=== PATIENT | female | born 1950 | race Caucasian/White ===

== ENCOUNTER 2021-11-14 13:44 | Emergency (ER) | payer MEDICARE, OTHER ==
[~2021-11-14] VITALS: Ht 152.4 cm; Wt 87.5 kg
--- NOTE | 2021-11-14 14:11 | ED Fall/Injury ---
General Chief Complaint: Trauma-Non Activation Stated Complaint: FALL; HEAD/RT SHOULDER INJ Source: patient Exam Limitations: no limitations History of Present Illness Date Seen by Provider: Nov 14, 2021 Time Seen by Provider: 13:45 Initial Comments 71-year-old female with past medical history of diabetes, vision issues, previous stroke, hypertension, COPD coming in after she was walking, did not see a ledge, fell over, hit her head on the side of the house, and her right elbow on the ground. She is having a very mild throbbing headache. She is having moderate to severe sharp pain in her right shoulder and right elbow. Pain is better when she is not moving. Did take Tylenol early this morning for regular pain which does not seem to be helping right now. She does not take any blood thinners that she knows of. She does take full dose aspirin daily. She did not pass out, denies chest pain, shortness of breath, abdominal pain, nausea, vomiting, diarrhea, fever, chills, focal weakness or numbness that is new, or any other concerns Allergies and Home Medications Allergies Coded Allergies: Sulfa (Sulfonamide Antibiotics) (Verified Allergy, Unknown, 11/14/21) codeine (Verified Allergy, Unknown, 11/14/21) Patient Home Medication List Home Medication List Reviewed: Yes Review of Systems Review of Systems Constitutional: No chills, No fever Eyes: Blurred Vision (at baseline) Ears, Nose, Mouth, Throat: no symptoms reported Respiratory: no symptoms reported Cardiovascular: no symptoms reported Gastrointestinal: no symptoms reported Genitourinary: no symptoms reported Musculoskeletal: joint pain Skin: no symptoms reported Psychiatric/Neurological: No Symptoms Reported All Other Systems Reviewed Negative Unless Noted: Yes Past Gbnbxmb-Dwpdcv-Izjxpa Hx Patient Social History Tobacco Use?: No Past Medical History Surgeries: Yes Appendectomy, Gallbladder, Tubal Ligation Physical Exam Vital Signs Vital Signs - First Documented Capillary Refill : Height, Weight, BMI Height: '" Weight: lbs. oz. kg; BMI Method: General Appearance: WD/WN, no apparent distress HEENT: PERRL/EOMI, normal ENT inspection, TMs normal, pharynx normal Neck: non-tender, full range of motion, supple, normal inspection Cardiovascular: regular rate, rhythm, no edema, no murmur Respiratory: chest non-tender, lungs clear, normal breath sounds, no respiratory distress, no accessory muscle use Gastrointestinal: normal bowel sounds, non tender, soft; No distended, No guarding, No rebound Back: normal inspection, no CVA tenderness, no vertebral tenderness Extremities: normal inspection, no pedal edema, no calf tenderness, normal capillary refill, other (Swelling and tenderness to the right elbow, tenderness to the distal right shoulder, normal passive and active range of motion of the right elbow, decreased active and passive range of motion of the right shoulder due to pain, normal neurovascular exam of the right upper extremity including normal sensation in the axillary nerve, normal testing of the radial/median/ulnar nerves) 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, no motor/sensory deficits, alert, normal mood/affect, oriented x 3 Skin: normal color, warm/dry Lymphatic: no adenopathy Jessie Coma Score Best Eye Response: (4) Open Spontaneously Best Verbal Response: (5) Oriented Best Motor Response: (6) Obeys Commands Progress/Results/Core Measures Results/Orders My Orders Orders - RUPINDER KAUFFMAN MD Ct Head/Cervical Spine Wo (11/14/21 14:05) Elbow 3 View Right (11/14/21 14:05) Shoulder 3 View Right (11/14/21 14:05) Hydrocodone/Apap 5/325 Tablet (Lortab 5 (11/14/21 14:15) Medications Given in ED Current Medications Medications Dose Ordered Sig/Jessica Route Start Time Stop Time Status Last Admin Dose Admin Acetaminophen/ Hydrocodone Bitart 1 ea ONCE ONCE PO 11/14/21 14:15 11/14/21 14:16 DC 11/14/21 14:19 1 EA Vital Signs/I&O 11/14/21 11/14/21 11/14/21 13:50 13:50 15:00 Temp 35.9 35.9 35.7 Pulse 99 99 92 Resp 20 20 18 B/P (MAP) 134/90 (105) 134/90 (105) 129/87 Pulse Ox 98 98 98 O2 Delivery Room Air Room Air Room Air Progress Progress Note : Progress Note 71-year-old female with above history coming in after a fall. ABCs were intact, vital stable, GCS 15 on presentation. Physical exam with the above-mentioned findings. CT head and cervical spine ordered as well as x-ray of the right shoulder and elbow. She was given hydrocodone for pain. I reviewed the CT scan and I do not see any large intracranial hemorrhage on my interpretation. X-ray of the right shoulder and right elbow also ordered interpreted by me showing no obvious fracture or dislocation. We gave the patient a sling for comfort. I believe she is stable for discharge with outpatient follow-up. She was sent home with strict return precautions. We will have her follow-up with orthopedics here in town. Diagnostic Imaging Diagonstic Imaging: Xray (elbow and shoulder on the right), CT (head and c spine) Comments NAME: CHICO CORDERO [facility] REC#: [id number] PT STATUS: REG ER : 1950 PHYSICIAN: RUPINDER KAUFFMAN MD ADMIT DATE: 11/14/21/ER FS Draft Date of Exam:11/14/21 CT HEAD/CERVICAL SPINE WO PROCEDURE: CT head and CT cervical spine without contrast. TECHNIQUE: Multiple contiguous axial images were obtained through the brain and cervical spine without the use of intravenous contrast. Sagittal and coronal reformations through the cervical spine were then performed. Auto Exposure Controls were utilized during the CT exam to meet ALARA standards for radiation dose reduction. INDICATION: Fall. COMPARISON: No prior studies are available for comparison. CT HEAD: FINDINGS: There is a large area of encephalomalacia in the right occipital lobe consistent with prior infarct. Ventricular size and sulcal pattern are normal. There is no sulcal effacement or midline shift. No acute intra-axial or extra-axial hemorrhage is detected. Cisterns are patent. Visualized paranasal sinuses are clear. IMPRESSION: Chronic changes. No acute intracranial process is detected. CT CERVICAL SPINE: FINDINGS: There is straightening of the normal cervical lordotic curvature. There is minimal anterolisthesis of C3 on C4. There is multilevel degenerative disc disease, greatest at C5-C6 and C6-C7 levels, with disc space narrowing and marginal spurring. There is multilevel facet arthropathy. Prevertebral tissues are normal. Odontoid is intact. No fractures are seen. IMPRESSION: Lower cervical spondylosis. No acute bony abnormality is detected. Dictated on workstation # [id number] Dict: 11/14/21 1430 Trans: 11/14/21 1437 [id number] Interpreted by: OSEAS AL MD Electronically signed by: [facility] [place], [place] NAME: CHICO CORDERO [facility] REC#: [id number] PT STATUS: REG ER : 1950 PHYSICIAN: RUPINDER KAUFFMAN MD ADMIT DATE: 11/14/21/ER FS Draft Date of Exam:11/14/21 ELBOW 3 VIEW RIGHT Indication: Fall. Time Of Exam: 2:27 PM 4 views of the right elbow were obtained. Alignment is normal. Joint spaces are well maintained. No fracture, dislocation or effusion is seen. There is moderate soft tissue swelling about the posterior elbow. Impression: Posterior soft tissue swelling. No acute bony abnormality is detected. Dictated on workstation # [id number] Dict: 11/14/21 1443 Trans: 11/14/21 1444 B [id number] Interpreted by: OSEAS AL MD Electronically signed by: [facility] [place], [place] NAME: CHICO CORDERO [facility] REC#: [id number] PT STATUS: REG ER : 1950 PHYSICIAN: RUPINDER KAUFFMAN MD ADMIT DATE: 11/14/21/ER FS Draft Date of Exam:11/14/21 SHOULDER 3 VIEW RIGHT INDICATION: Right shoulder pain post fall. TECHNIQUE: AP, oblique, and transscapular views of the right shoulder are obtained. FINDINGS: No fracture or acute bony abnormality is seen. Glenohumeral joint and AC joint show mild degenerative changes. IMPRESSION: Mild chronic changes in the right shoulder with no acute abnormality. Dictated on workstation # [id number] Dict: 11/14/21 1440 Trans: 11/14/21 1445 [facility] [id number] Interpreted by: SUKH STOVALL MD Electronically signed by: Departure Impression Primary Impression: Fall Qualified Codes: W19.XXXA - Unspecified fall, initial encounter Additional Impressions: Closed head injury Qualified Codes: S09.90XA - Unspecified injury of head, initial encounter Elbow contusion Qualified Codes: S50.01XA - Contusion of right elbow, initial encounter Shoulder pain, right Qualified Codes: M25.511 - Pain in right shoulder Disposition: 01 HOME, SELF-CARE Condition: Stable Departure-Patient Inst. Decision time for Depature: 14:55 Referrals: NII ROACH,LOCAL PHYSICIAN (PCP) Primary Care Physician Patient Instructions: Minor Head Injury (DC) Add. Discharge Instructions: We do not see anything broken or dislocated on your x-rays. The CT of your head and neck also look good with no concerning findings that are new. Take Tylenol as needed for pain. You can also try ice or heating pad, whichever works b [place]. If pain is not significantly better in your arm in the next couple days I would follow-up with Mendel Roach here in [facility] who does orthopedics. RUPINDER KAUFFMAN MD Nov 14, 2021 14:11
[2021-11-14] MEDS ORDERED: HYDROcodone/APAP 5 MG/325 MG (LORTAB) TAB PO ONE (14:15)
--- NOTE | 2021-11-14 14:37 | Diagnostic Imaging Report ---
PROCEDURE: CT head and CT cervical spine without contrast. TECHNIQUE: Multiple contiguous axial images were obtained through the brain and cervical spine without the use of intravenous contrast. Sagittal and coronal reformations through the cervical spine were then performed. Auto Exposure Controls were utilized during the CT exam to meet ALARA standards for radiation dose reduction. INDICATION: Fall. COMPARISON: No prior studies are available for comparison. CT HEAD: FINDINGS: There is a large area of encephalomalacia in the right occipital lobe consistent with prior infarct. Ventricular size and sulcal pattern are normal. There is no sulcal effacement or midline shift. No acute intra-axial or extra-axial hemorrhage is detected. Cisterns are patent. Visualized paranasal sinuses are clear. IMPRESSION: Chronic changes. No acute intracranial process is detected. CT CERVICAL SPINE: FINDINGS: There is straightening of the normal cervical lordotic curvature. There is minimal anterolisthesis of C3 on C4. There is multilevel degenerative disc disease, greatest at C5-C6 and C6-C7 levels, with disc space narrowing and marginal spurring. There is multilevel facet arthropathy. Prevertebral tissues are normal. Odontoid is intact. No fractures are seen. IMPRESSION: Lower cervical spondylosis. No acute bony abnormality is detected. Dictated by: Dictated on workstation # [id number]
--- NOTE | 2021-11-14 14:44 | Diagnostic Imaging Report ---
Indication: Fall. Time Of Exam: 2:27 PM 4 views of the right elbow were obtained. Alignment is normal. Joint spaces are well maintained. No fracture, dislocation or effusion is seen. There is moderate soft tissue swelling about the posterior elbow. Impression: Posterior soft tissue swelling. No acute bony abnormality is detected. Dictated by: Dictated on workstation # [id number]
--- NOTE | 2021-11-14 14:45 | Diagnostic Imaging Report ---
INDICATION: Right shoulder pain post fall. TECHNIQUE: AP, oblique, and transscapular views of the right shoulder are obtained. FINDINGS: No fracture or acute bony abnormality is seen. Glenohumeral joint and AC joint show mild degenerative changes. IMPRESSION: Mild chronic changes in the right shoulder with no acute abnormality. Dictated by: Dictated on workstation # [id number]
[2021-11-14 15:00] VITALS: BP 129/87
== END 2021-11-14 15:00 | disposition home or self-care (01) ==
LOC: ER FS 13:46
DX: S50.01XA Contusion of right elbow, initial encounter (principal); S09.90XA Unspecified injury of head, initial encounter; M25.511 Pain in right shoulder; Z79.82 Long term (current) use of aspirin; W22.8XXA Striking against or struck by other objects, initial encounter
CPT/HCPCS: 70450; 72125; 73030; 73080; 99283; A4565

== ENCOUNTER → 2022-03-21 | Outpatient (CLI) | payer MEDICARE ==
--- NOTE | 2022-03-21 10:41 | Diagnostic Imaging Report ---
INDICATION: Fall with right shoulder pain. AP, oblique, and transaxillary views of the right shoulder are obtained and compared to 11/14/2021. No fracture or acute bony abnormality seen. There is mild degenerative change of the glenohumeral joint and AC joint. IMPRESSION: Degenerative findings of right shoulder with no acute abnormality. Dictated by: Dictated on workstation # [id number]
== END ==
LOC: RAD FS 10:00
PROVIDERS: ATTEND Orthopaedic Surgery
DX: M19.011 Primary osteoarthritis, right shoulder (principal)
CPT/HCPCS: 73030

== ENCOUNTER → 2022-03-23 | Outpatient (CLI) | payer MEDICARE | LOC: ORTHO 15:45 | PROVIDERS: ATTEND Orthopaedic Surgery | DX: M75.101 Unspecified rotator cuff tear or rupture of right shoulder, not specified as traumatic (principal) ==

== ENCOUNTER → 2022-06-22 | Outpatient (CLI) | payer MEDICARE ==
--- NOTE | 2022-06-22 12:13 | Diagnostic Imaging Report ---
PROCEDURE: MRI right joint upper extremity without contrast. TECHNIQUE: Multiplanar, multisequence non contrast-enhanced MRI of the right upper extremity was accomplished. INDICATION: Injury, shoulder pain. EXAMINATION: Right shoulder MRI without contrast 06/22/2022. FINDINGS: There are findings of tendinosis throughout the supraspinatus and infraspinatus tendons. No discrete tear is appreciated. The subscapularis tendon appears slightly thinned likely due to partial articular sided tear. There is no retraction or full-thickness extension appreciated. The long head of biceps tendon lies in the bicipital groove and is intact. Along its intracapsular aspect, there is hyperintensity within the tendon suggesting tendinosis. The biceps tendon anchor is not well evaluated perhaps due to positioning in relation to the bore. The labrum is grossly intact on this noncontrast examination. There is minimal narrowing and spurring at the acromioclavicular joint. No acute osseous abnormality is appreciated. There is minimal atrophy of the superior aspect of the subscapularis muscle with mild atrophy of the supraspinatus muscle. Remaining musculature is preserved. Visualized axilla unremarkable. IMPRESSION: 1. Partial articular sided tear of the subscapularis tendon with adjacent tendinosis within the intracapsular long head of biceps tendon. 2. Tendinosis throughout the supraspinatus and infraspinatus tendons which appear intact. 3. Labrum grossly intact on this noncontrast examination. Dictated by: Dictated on workstation # [id number]
== END ==
LOC: RAD 09:18
PROVIDERS: ATTEND Orthopaedic Surgery
DX: S43.401A Unspecified sprain of right shoulder joint, initial encounter (principal); M75.101 Unspecified rotator cuff tear or rupture of right shoulder, not specified as traumatic; M75.81 Other shoulder lesions, right shoulder; X58.XXXA Exposure to other specified factors, initial encounter
CPT/HCPCS: 73221

== ENCOUNTER → 2022-09-04 | Emergency (ER) | payer MEDICARE | END | disposition home or self-care (01) | LOC: EDUNIT# 10:18 → ER FS 10:20 | DX: R10.32 Left lower quadrant pain (principal); Z53.21 Procedure and treatment not carried out due to patient leaving prior to being seen by health care provider ==

== ENCOUNTER → 2022-09-04 | Outpatient (CLI) | payer MEDICARE ==
[2022-09-04 11:26] LABS: HEMOGLOBIN 14.9 g/dL (11.5-16.0); MEAN PLATELET VOLUME 11.7 fL (9.0-12.2); WHITE BLOOD COUNT 10.5 10^3/uL (4.3-11.0)
[2022-09-04 12:12] LABS: ALBUMIN 4.4 GM/DL (3.2-4.5); BILIRUBIN,TOTAL 0.5 MG/DL (0.1-1.0); CALCIUM 9.8 MG/DL (8.5-10.1); CREATININE SERUM 1.07 MG/DL (0.60-1.30); POTASSIUM 4.3 MMOL/L (3.6-5.0); TOTAL PROTEIN 6.6 GM/DL (6.4-8.2)
== END ==
LOC: LABNPT 10:41
PROVIDERS: ATTEND Registered Nurse Emergency
DX: E11.9 Type 2 diabetes mellitus without complications (principal); N30.81 Other cystitis with hematuria; I10 Essential (primary) hypertension; H10.9 Unspecified conjunctivitis; R07.89 Other chest pain
CPT/HCPCS: 80053; 80061; 83036; 85027; 86141

== ENCOUNTER → 2022-09-04 | Outpatient (CLI) | payer MEDICARE ==
[~2022-09-04] MED LIST: CATHETER FLUSH 10 ML SYR IV PRN; HOLD METFORMIN - RECEIVED CONTRAST 20 ML VIAL IV SCH; IOHEXOL 350 MG/ML 100 ML (OMNIPAQUE 350) VIAL IV ONE; NS 100 ML (IVPB) BAG IV ONE
--- NOTE | 2022-09-04 17:50 | Diagnostic Imaging Report ---
PROCEDURE: CT abdomen and pelvis with contrast. TECHNIQUE: Multiple contiguous axial images were obtained through the abdomen and pelvis after administration of intravenous contrast. Auto Exposure Controls were utilized during the CT exam to meet ALARA standards for radiation dose reduction. All CT scans use one or more of the following dose optimizing techniques: automated exposure control, MA and/or KvP adjustment based on patient size and exam type or iterative reconstruction. DATE: September 04, 2022. COMPARISON: None. INDICATION: 72-year-old female, left lower quadrant abdominal pain. FINDINGS: The visualized portions of the lung bases are clear. The heart is not enlarged. There is no pericardial effusion. The liver is unremarkable in size and contour. There is pneumobilia on the left with very mild left intrahepatic bile duct dilation. The gallbladder is surgically absent. The common bile duct is normal in caliber. There is no identified focal liver lesion. The main, right, and left portal veins are patent. The main pancreatic duct is not abnormally dilated. There is unremarkable appearance of the pancreatic parenchyma. The spleen is normal in size. The adrenal glands are unremarkable. There is a 5 mm low-attenuation right renal lesion on axial image 89 which is too small to characterize. The urinary collecting systems are not distended. There is no identified renal or ureteral stone. There is diffuse urinary bladder wall thickening which may reflect cystitis and/or chronic outlet obstruction. There is diverticulosis. There is wall thickening and prominent inflammatory stranding at the level of the proximal aspect of the sigmoid colon most consistent with acute diverticulitis. There is no adjacent pericolonic lymph node. The intestinal tract is not distended. There is no free intraperitoneal air. There is no drainable fluid collection. There is a very small umbilical hernia which is fat-containing. There is question of diffuse wall thickening of the stomach. There is a small fat-containing left inguinal hernia. There are atherosclerotic calcifications. There is no identified abnormally enlarged lymph node in the abdomen or pelvis which meets CT size criteria for adenopathy. There is no identified acute bony abnormality. IMPRESSION: CT ABDOMEN AND PELVIS. 1. Findings consistent with acute diverticulitis at the level of the proximal sigmoid colon without evidence of perforation or abscess. 2. Diffuse urinary bladder wall thickening which may relate to cystitis and/or chronic outlet obstruction. 3. Potential wall thickening of the stomach. This could be seen with gastritis or malignancy. Consider further evaluation with upper endoscopy. Dictated by: Dictated on workstation # [id number]
== END ==
LOC: LAB FS 10:27 → RAD FS 17:08
PROVIDERS: ATTEND Registered Nurse Emergency
DX: N32.9 Bladder disorder, unspecified (principal); K31.9 Disease of stomach and duodenum, unspecified
CPT/HCPCS: 74177; Q9967

== ENCOUNTER → 2023-01-23 | Outpatient (CLI) | payer MEDICARE | LOC: CARDFS 11:25 | PROVIDERS: ATTEND Registered Nurse Emergency | DX: I51.7 Cardiomegaly (principal); R42 Dizziness and giddiness; R29.6 Repeated falls | CPT/HCPCS: 93306 ==

== ENCOUNTER → 2023-02-14 | Outpatient (CLI) | payer MEDICARE ==
[~2023-02-14] MED LIST changes: -CATHETER FLUSH 10 ML SYR IV PRN
[2023-02-14 09:17] LABS: CREATININE SERUM 1.32 MG/DL (0.60-1.30)
--- NOTE | 2023-02-14 18:53 | Diagnostic Imaging Report ---
PROCEDURE: CT angiography of the head and CT angiography of the neck with and without contrast. TECHNIQUE: Contiguous noncontrast images were obtained from the skull base through the vertex. After intravenous contrast administration, helical CT angiography of the neck was performed. Source data was reformatted into 3D MIP projections. Delayed post contrast acquisition was also obtained. Auto Exposure Controls were utilized during the CT exam to meet ALARA standards for radiation dose reduction. INDICATION: Carotid artery stenosis. Stroke 13 years ago. Loss of balance. Left eye vision loss. COMPARISON: CT head without contrast 11/14/2021. FINDINGS: Noncontrast head CT demonstrates a large chronic infarct throughout the right posterior cerebral artery distribution. Chronic lacunar infarct in the right thalamus. No CT evidence of an acute territorial infarction. No intracranial hemorrhage, mass effect, hydrocephalus or extra-axial fluid collection. No abnormal intracranial enhancement on delayed postcontrast imaging. CTA demonstrates a conventional aortic arch. Calcified atherosclerotic disease results in 70-89% narrowing of the left internal carotid artery origin. There is 50-69% narrowing of the right internal carotid artery origin. Retropharyngeal course of both internal carotid arteries. There is chronic appearing occlusion of the right M1 with reconstitution of the more distal right MCA branches via collateral flow. This is hard to definitively characterize given the large venous contamination. There is occlusion of the right P1 segment. The right vertebral artery V4 segment is near completely occluded distal to the right PICA origin. The left vertebral artery is dominant. The basilar, left vertebral artery, bilateral common carotid, anterior cerebral, left middle cerebral and left posterior cerebral arteries demonstrate no high-grade narrowing, aneurysm or dissection. The dural venous sinuses are normally opacified. IMPRESSION: 1. Chronic infarcts throughout the right RECRUITING CONSULTANT distribution. No CT evidence of acute infarction or hemorrhage. 2. 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 3. Occlusion of the right P1 segment. 4. Near-complete occlusion of the right V4 vertebral artery distal to the right PICA origin. 5. High-grade narrowing of the bilateral internal carotid artery origins, left greater than right. Report was called and faxed to the office of Dr. Pastora Vogel at 5:53 p.m., by kiet. Dictated by: Dictated on workstation # [id number]
== END ==
LOC: RAD 08:43
PROVIDERS: ATTEND Internal Medicine Cardiovascular Disease
DX: I63.531 Cerebral infarction due to unspecified occlusion or stenosis of right posterior cerebral artery (principal); I65.23 Occlusion and stenosis of bilateral carotid arteries
CPT/HCPCS: 36415; 70496; 70498; 82565; 84520

== ENCOUNTER → 2023-05-07 | Outpatient (CLI) | payer MEDICARE ==
[~2023-05-07] VITALS: Ht 154 cm; Wt 86.0 kg
[~2023-05-07] MED LIST changes: +CATHETER FLUSH 10 ML SYR IVP PRN; -HOLD METFORMIN - RECEIVED CONTRAST 20 ML VIAL IV SCH; -IOHEXOL 350 MG/ML 100 ML (OMNIPAQUE 350) VIAL IV ONE; -NS 100 ML (IVPB) BAG IV ONE; +REGADENOSON 0.4 MG/5 ML SYR IV ONE
[2023-05-07 09:56] VITALS: BP 165/62
--- NOTE | 2023-05-07 17:06 | Cardiology Stress Test Report ---
Stress Test Report Date of Procedure/Referring: Date of Procedure: May 07, 2023 PCP Shereen Potts Admitting Physician Admitting Physician: Attending Physician: Namita Hennessy Baseline Heart Rate: 66 Baseline Blood Pressure: Blood Pressure Systolic: 165 Blood Pressure Diastolic: 62 Baseline Vitals Vital Signs Date Time Temp Pulse Resp B/P (MAP) Pulse Ox O2 Delivery O2 Flow Rate FiO2 05/07/23 09:56 66 165/62 (96) Baseline EKG: Baseline EKG: NSR Summary After explaining the procedure to the patient, she signed a consent and then brought to the stress nuclear laboratory. Patient received 0.4 mg Lexiscan for stress test, ECG, heart rate and blood pressure were monitored continuously. Resting and stress dose of radio tracer were injected, imaging was acquired and reviewed in short axis, horizontal long axis and vertical long axis views. TID: 1.24 SSS: 2 SDS: 0 EF: 71 Patient tolerated Lexiscan well Breast attenuation with no significant ischemia or infarction noted on SPECT images Small left ventricular size with ejection fraction 71% Transient ischemic diameter value is mildly elevated probably due to the small left ventricular size RICARDO KNAPP MD May 07, 2023 17:06
== END ==
LOC: CARD 07:45
PROVIDERS: ATTEND Physician Assistant
DX: R07.9 Chest pain, unspecified (principal)
CPT/HCPCS: 78452; 93017; A9502